=== PATIENT | male | born 1965 | race Hispanic/Latino ===

== ENCOUNTER 2019-06-09 05:19 | Emergency (ER) | payer SELFPAY ==
[2019-06-09] MEDS ORDERED: Amoxicillin/Potassium Clav 875 MG TAB ONE (06:18)
[2019-06-09] MEDS ORDERED: Acetaminophen 325 MG TAB ONE (06:18)
--- NOTE | 2019-06-09 07:24 | CT ---
CT BRAIN WITHOUT CONTRAST: INDICATIONS: Fall with head laceration. COMPARISON: Prior exam dated 03/20/2019. FINDINGS: No acute infarct, hemorrhage, or hydrocephalus is evident. Mild generalized cerebral atrophy is stab le. No midline shift is noted. The skull is intact. The paranasal sinuses are clear, except for th e left maxillary sinus, where there is near complete opacification. The mastoid air cells demonstrat e an effusion involving the left middle ear cavity and left mastoid air cells, which is slightly more pronounced than on the prior exam. IMPRESSION: 1. No acute intracranial abnormality. 2. Chronic sinusitis of the left maxillary sinus. 3. Complete opacification of the left middle ear cavity and left mastoid air cells. Recommend corre lation for an otitis media. POS: BH
--- NOTE | 2019-06-09 07:26 | CT ---
CT CERVICAL SPINE WITHOUT CONTRAST: INDICATIONS: Fall with neck pain. COMPARISON: Prior CT cervical spine dated 09/03/2014. FINDINGS: No acute fracture or subluxation is evident. There is reversal of the normal cervical lordosis, whic h is likely related to positioning. No malalignment is grossly evident otherwise. The craniocervica l junction is normal appearing. There is advanced disk degenerative disease seen at C4-C5, C5-C6, an d C6-C7. No acute fracture or subluxation is evident. The prevertebral soft tissues are normal appe aring. The lung apices are clear. There is healed deformity involving the distal right clavicle. T here is opacity seen within the left middle ear cavity and left mastoid air cells. IMPRESSION: 1. No acute fracture or subluxation evident. 2. Moderate cervical spondylosis. 3. Complete opacification of the left middle ear cavity and left mastoid air cells. Recommend corre lation for left-sided otitis media. POS: BH
== END 2019-06-09 07:30 ==
LOC: BURERS 05:19
DX: S01.01XA Laceration without foreign body of scalp, initial encounter (principal); S01.112A Laceration without foreign body of left eyelid and periocular area, initial encounter; E11.9 Type 2 diabetes mellitus without complications; E03.9 Hypothyroidism, unspecified; K21.9 Gastro-esophageal reflux disease without esophagitis; Z79.899 Other long term (current) drug therapy; Z79.84 Long term (current) use of oral hypoglycemic drugs; Z79.51 Long term (current) use of inhaled steroids; W06.XXXA Fall from bed, initial encounter
CPT/HCPCS: 12002; 70450; 72125

== ENCOUNTER 2022-07-07 08:31 | Outpatient (CLI) | payer OTHER ==
[2022-07-07 09:13] LABS: Eosinophils 2 % (0-10); Hemoglobin 12.3 g/dL (14.0-18.0); Lymphocytes 52 % (21-51); MDiff Complete? YES; Mean Corpuscular HGB CONC 33.8 g/dL (32.0-36.0); Mean Corpuscular Hemoglobin 31.1 pg (27.0-31.0); Mean Platelet Volume 7.6 fL (7.4-10.4); Monocytes 7 % (0-10); Neutrophil 39 % (42-75); Platelet Count 197 thou/uL (130-400); RBC Distribution Width 12.5 % (11.5-14.5); Red Blood Cell (RBC) Count 3.95 mill/uL (4.70-6.10); White Blood Cell (WBC) Count 4.7 thou/uL (4.8-10.8)
== END 2022-07-07 08:32 | disposition home or self-care (01) ==
LOC: BURLAB 08:31
PROVIDERS: ATTEND Family Medicine
DX: Z51.81 Encounter for therapeutic drug level monitoring (principal); Z79.899 Other long term (current) drug therapy
CPT/HCPCS: 36415; 80164; 85025

== ENCOUNTER 2022-12-04 07:35 | Emergency (ER) | payer SELFPAY ==
[2022-12-04 08:08] LABS: #Basophils 0.1 thou/uL (0.0-0.2); #Eosinphils 0.2 thou/uL (0.0-0.7); #Lymphocytes 1.8 thou/uL (1.20-3.40); #Monocytes 0.4 thou/uL (0.11-0.59); #Neutrophils 2.9 thou/uL (1.40-6.50); %Basophils 1.2 % (0.0-1.0); %Eosinophils 3.5 % (0.0-10.0); %Neutrophils 54.4 % (42.0-75.0); Hemoglobin 12.4 g/dL (14.0-18.0); Mean Corpuscular Hemoglobin 31.6 pg (27.0-31.0); Mean Corpuscular Volume 93.1 fl (78.0-98.0); Mean Platelet Volume 8.7 fL (7.4-10.4); Platelet Count 176 10x3/uL (130-400); RBC Distribution Width 11.7 % (11.5-14.5); Red Blood Cell (RBC) Count 3.92 mill/uL (4.70-6.10); White Blood Cell (WBC) Count 5.3 10x3/uL (4.8-10.8)
[2022-12-04 08:26] LABS: ALT (SGPT) 14 U/L (8-55); AST (SGOT) 13 U/L (5-34); Alkaline Phosphatase 82 U/L (40-110); Anion Gap 17 mmol/L (10-20); BUN (Urea Nitrogen) 18 mg/dL (8.4-25.7); Bilirubin, Total 0.3 mg/dL (0.2-1.2); CK (CPK) 47 U/L (30-200); Calc. Creatinine Clearance 0 mL/min (70-130); Calcium 9.3 mg/dL (7.8-10.44); Carbon Dioxide 26 mmol/L (22-29); Chloride 104 mmol/L (98-107); Estimated GFR 108; Globulin 4.2 g/dL (2.4-3.5); Glucose 89 mg/dL (70-105); Protein, Total 8.2 g/dL (6.0-8.3); Sodium 142 mmol/L (136-145)
== END 2022-12-04 10:20 | disposition home or self-care (01) ==
LOC: BURERS 07:35
DX: S02.85XA Fracture of orbit, unspecified, initial encounter for closed fracture (principal); S01.81XA Laceration without foreign body of other part of head, initial encounter; I10 Essential (primary) hypertension; K21.9 Gastro-esophageal reflux disease without esophagitis; E78.5 Hyperlipidemia, unspecified; E11.9 Type 2 diabetes mellitus without complications; Z79.84 Long term (current) use of oral hypoglycemic drugs; Z79.82 Long term (current) use of aspirin; W19.XXXA Unspecified fall, initial encounter
CPT/HCPCS: 12011; 70450; 70486; 72125; 80053; 82550; 84484; 85025

== ENCOUNTER 2023-03-04 13:22 | Emergency (ER) | payer SELFPAY | END 2023-03-04 14:13 | disposition home or self-care (01) | LOC: BURERS 13:22 | DX: S90.31XA Contusion of right foot, initial encounter (principal); S60.221A Contusion of right hand, initial encounter; S00.93XA Contusion of unspecified part of head, initial encounter; I10 Essential (primary) hypertension; E11.9 Type 2 diabetes mellitus without complications; W05.0XXA Fall from non-moving wheelchair, initial encounter; Y92.129 Unspecified place in nursing home as the place of occurrence of the external cause ==

== ENCOUNTER 2023-04-07 00:39 | Emergency (ER) | payer SELFPAY ==
[2023-04-07] MEDS ORDERED: Lidocaine 2% w/Epinephrine 1:200K 20 ML VIAL ONE (00:50)
[2023-04-07] MEDS ORDERED: Boostrix 0.5 ML (Tdap) VIAL (>/=7 yrs of age) ONE (01:16)
== END 2023-04-07 03:22 | disposition home or self-care (01) ==
LOC: BURERS 00:39
DX: S01.81XA Laceration without foreign body of other part of head, initial encounter (principal); E11.9 Type 2 diabetes mellitus without complications; E03.9 Hypothyroidism, unspecified; I10 Essential (primary) hypertension; K21.9 Gastro-esophageal reflux disease without esophagitis; W05.0XXA Fall from non-moving wheelchair, initial encounter; Z79.84 Long term (current) use of oral hypoglycemic drugs; Z79.82 Long term (current) use of aspirin; Z79.899 Other long term (current) drug therapy
CPT/HCPCS: 12011; 70450; 90471; 90715